=== PATIENT | female | born 1935 | race Caucasian/White ===

== ENCOUNTER 2016-08-01 12:29 | Emergency (ER) | payer MEDICARE, BC ==
[2016-08-01] MEDS ORDERED: KETOROLAC TROMETHAMINE INJ/PF 30 MG/1 ML SDV IV ONE (15:25)
[2016-08-01] MEDS ORDERED: DEXAMETHASONE SOD PHOS INJ 10 MG/1 ML VIAL IV ONE (15:25)
[2016-08-01] MEDS ORDERED: HYDROCODONE/ACETAMINOPHEN 5-325 MG TABLET PO ONE (15:28)
--- NOTE | 2016-08-01 15:30 | ER Document Report ---
ED General - General Chief Complaint: Shoulder Pain Stated Complaint: RIGHT SHOULDER PAIN Time seen by provider: 15:26 Mode of Arrival: Wheelchair Information source: Patient, Parent Notes: 80-year-old female presents to ED for pain in the right shoulder going down the right hand. Today she started having pain in her cervical spine also. States she had pain in her shoulder a month ago with a Dr. Munoz he gave her some exercises to do but the pain has gotten much worse and is now spread to her neck and going down her arm is throbbing down her right arm. TRAVEL OUTSIDE OF THE [place] IN LAST 30 DAYS: No - HPI Onset: Other - month Onset/Duration: Gradual, Persistent, Worse Quality of pain: Sharp, Stabbing, Throbbing Severity: Severe Pain Level: 5 Associated symptoms: Other - Pain and neck right shoulder going down to her hand Exacerbated by: Movement Relieved by: Denies - Lifting Similar symptoms previously: Yes Recently seen / treated by doctor: Yes - Related Data Allergies/Adverse Reactions: No Known Allergies Allergy (Verified 05/10/14 13:21) Past Medical History - General Information source: Patient Last Menstrual Period: hyst - Social History Smoking Status: Never Smoker Cigarette use (# per day): No Chew tobacco use (# tins/day): No Frequency of alcohol use: None Drug Abuse: None Lives with: Family Family History: Reviewed & Not Pertinent Patient has suicidal ideation: No Patient has homicidal ideation: No - Past Medical History Cardiac Medical History: Reports: Hx Hypertension Pulmonary Medical History: Reports: Hx Asthma Denies: Hx Tuberculosis EENT Medical History: Reports: None Neurological Medical History: Reports: None Endocrine Medical History: Reports: Hx Diabetes Mellitus Type 2 Renal/ Medical History: Reports: None Malignancy Medical History: Reports: Hx Skin Cancer GI Medical History: Reports: None Musculoskeltal Medical History: Reports Hx Arthritis, Reports Hx Musculoskeletal Deformity, Reports Hx Musculoskeletal Trauma Skin Medical History: Reports None Psychiatric Medical History: Reports: None Traumatic Medical History: Reports: None Past Surgical History: Reports: Hx Cholecystectomy, Hx Hysterectomy - Immunizations Hx Diphtheria, Pertussis, Tetanus Vaccination: Yes Hx Pneumococcal Vaccination: 03/03/12 Review of Systems - Review of Systems Constitutional: No symptoms reported EENT: No symptoms reported Cardiovascular: No symptoms reported Respiratory: No symptoms reported Gastrointestinal: No symptoms reported Genitourinary: No symptoms reported Female Genitourinary: No symptoms reported Musculoskeletal: Joint pain - Right shoulder pain, Muscle pain, Neck pain, Other - Pain radiates down her right arm Skin: No symptoms reported Hematologic/Lymphatic: No symptoms reported Neurological/Psychological: No symptoms reported Physical Exam - Vital signs Vitals: Temp Pulse Resp BP Pulse Ox 97.6 F 99 20 213/91 H 100 08/01/16 12:41 08/01/16 12:41 08/01/16 12:41 08/01/16 12:41 08/01/16 12:41 Interpretation: Normal - General General appearance: Appears well, Alert - HEENT Head: Normocephalic, Atraumatic Eyes: Normal Pupils: PERRL - Respiratory Respiratory status: No respiratory distress Chest status: Nontender Breath sounds: Normal Chest palpation: Normal - Cardiovascular Rhythm: Regular Heart sounds: Normal auscultation Murmur: No - Abdominal Inspection: Normal Distension: No distension Bowel sounds: Normal Tenderness: Nontender Organomegaly: No organomegaly - Back Back: Normal, Nontender - Extremities General upper extremity: Normal inspection, Normal color, Normal ROM, Normal temperature General lower extremity: Normal inspection, Nontender, Normal color, Normal ROM , Normal temperature, Normal weight bearing. No: Myranda's sign Shoulder: Tender. No: Abrasion, Deformity, Dislocation, Ecchymosis, Instability , Laceration, Limited ROM - She has full range of motion but it is with pain - Neurological Neuro grossly intact: Yes Cognition: Normal Orientation: AAOx4 Marquita Coma Scale Eye Opening: Spontaneous Rarden Coma Scale Verbal: Oriented Rarden Coma Scale Motor: Obeys Commands Marquita Coma Scale Total: 15 Speech: Normal Motor strength normal: LUE, RUE, LLE, RLE Sensory: Normal - Psychological Associated symptoms: Normal affect, Normal mood - Skin Skin Temperature: Warm Skin Moisture: Dry Skin Color: Normal Course - Re-evaluation Re-evalutation: 08/01/16 21:[address] CT were discussed with patient and written reports given to patient patient was treated with IV Toradol and Decadron and discharged home to follow- up with her primary doctor - Vital Signs Vital signs: Temp Pulse Resp BP Pulse Ox 97.6 F 71 20 205/85 H 95 08/01/16 12:41 08/01/16 16:49 08/01/16 16:49 08/01/16 16:49 08/01/16 16:49 - Diagnostic Test Radiology reviewed: Image reviewed, Reports reviewed Discharge - Discharge Clinical Impression: Neck pain Right shoulder pain Qualifiers: Chronicity: unspecified Qualified Code(s): M25.511 - Pain in right shoulder Condition: Stable Disposition: HOME, SELF-CARE Additional Instructions: Arthritis Your symptoms are due to arthritis. Arthritis is an inflammation of the joints. There are many types -- osteoarthritis (due to "wear and tear"), auto- immmune arthritis (such as rheumatoid, lupus, Des's, and others), and crystal -induced arthritis (such as gout and pseudogout). The physician's examination, combined with laboratory tests, will determine the cause of your arthritis. All types of arthritis are treated with antiinflammatory medications. Other medication may be required for special types of arthritis, or if your problem does not respond to the antiinflammatory medicine. Local warmth may be helpful. Move the involved joints through the full range of motion daily. Mild exercise is usually still possible for most persons with arthritis (ask your physician). Swimming provides good exercise without damaging the joints. Contact the physician if you are worsening in any way. You was seen for neck and shoulder pain today. Your x-ray shows some chronic changes but no acute changes to the neck and shoulder. There is evidence of arthritis in both areas. Please follow-up with your primary doctor. You will given a shot of Toradol and Decadron both of which are anti-inflammatories. STEROID MEDICATION: You have been given an injection of medicine of the cortisone/steroid class. This medication is used to control inflammation or allergy. It is often continued as a pill for a short period of time, until the acute process subsides. There are usually no side effects from short-term use of cortisone-like medications. Some persons feel an increased sense of well-being and are not sleepy at bedtime. Long-term use of cortisone medications is best avoided, unless required for a severe condition. If your condition does not remit, or relapses after the course of corticosteroid medication, you should consult your physician. Toradol Injection You have been given an injection of ketorolac tromethamine (Toradol). This is an excellent, safe drug for pain control. It also has potent antiinflammatory action. You should have significant pain relief within about one hour. Toradol is not addicting and is non-sedating. It does not interfere with driving or work. Call or return if you develop itching, hives, shortness of breath, or rash. FOLLOW-UP CARE: If you have been referred to a physician for follow-up care, call the physician s office for an appointment as you were instructed or within the next two days. If you experience worsening or a significant change in your symptoms, notify the physician immediately or return to the Emergency Department at any time for re-evaluation. Forms: Elevated Blood Pressure Referrals: ELISABETH CALVILLO MD [Primary Care Provider] - Follow up as needed
[2016-08-01 16:51] VITALS: BP 205/85
== END 2016-08-01 16:49 | disposition home or self-care (01) ==
LOC: ER 12:29
DX: M54.2 Cervicalgia (principal); M25.511 Pain in right shoulder
CPT/HCPCS: 99284; 96374; 96375; 73030; 72125; J1885; J1100; A9270

== ENCOUNTER 2016-08-11 10:55 | Inpatient (IN) | payer MEDICARE, BC ==
[2016-08-11] MEDS ORDERED: HEPARIN SODIUM,PORCINE/D5W 250 ML IV PRN (13:12)
[2016-08-11] MEDS ORDERED: HEPARIN SOD (PORCINE) 1,000 UNIT/ML 10 ML VIAL IV ONE (14:45)
[2016-08-11 15:12] LABS: ABSOLUTE BASOPHILS # (AUTO) 0.1 10^3/uL (0.0-0.2); ABSOLUTE EOSINOPHILS # (AUTO) 0.3 10^3/uL (0.0-0.6); ABSOLUTE LYMPHOCYTES (AUTO) 2.9 10^3/uL (0.5-4.7); ABSOLUTE MONOCYTES (AUTO) 1.7 10^3/uL (0.1-1.4); BASOPHILS % (AUTO) 0.5 % (0-2); EOSINOPHILS % (AUTO) 2.1 % (0-6); HEMATOCRIT 42.7 % (36.0-47.0); HEMOGLOBIN 14.1 g/dL (12.0-15.5); HGB HCT DIFFERENCE -0.4; MEAN CORPUSCULAR HEMOGLOBIN 26.8 pg (27.0-33.4); MEAN CORPUSCULAR VOLUME 81 fl (80-97); RED BLOOD COUNT 5.26 10^6/uL (3.72-5.28); SEGMENTED NEUTROPHILS % (AUTO) 64.4 % (42-78); WHITE BLOOD COUNT 13.9 10^3/uL (4.0-10.5)
[2016-08-11 15:28] LABS: PARTIAL THROMBOPLASTIN TIME 23.8 SEC (23.5-35.8); PROTHROMBIN TIME 12.4 SEC (11.4-15.4)
[2016-08-11] MEDS ORDERED: HEPARIN SOD (PORCINE) 1,000 UNIT/ML 10 ML VIAL IV PRN (15:39)
[2016-08-11] MEDS: HEPARIN SODIUM,PORCINE/D5W 25,000 UNIT/250 ML RTUINJ IV PRN (16:23)
--- NOTE | 2016-08-11 17:14 | PDOC H&P ---
History of Present Illness Admission Date/PCP: 08/11/16 13:04 ELISABETH CALVILLO, Patient complains of: Left calf pain and swelling History of Present Illness: STEF COOK is a 80 year old female Past Medical History Cardiac Medical History: Reports: Hypertension Pulmonary Medical History: Reports: Asthma Denies: Tuberculosis Endocrine Medical History: Reports: Diabetes Mellitus Type 2 Malignancy Medical History: Reports: Skin Cancer Musculoskeltal Medical History: Reports: Arthritis Past Surgical History Past Surgical History: Reports: Cholecystectomy, Hysterectomy Denies: Pacemaker Social History Information Source: Patient Smoking Status: Never Smoker Frequency of Alcohol Use: Social Hx Recreational Drug Use: No Hx Prescription Drug Abuse: No Family History Family History: Reviewed & Not Pertinent Parental Family History Reviewed: Yes Children Family History Reviewed: Yes Sibling(s) Family History Reviewed.: Yes Medication/Allergy Home Medications: Albuterol Sulfate [Ventolin 0.083% Neb 2.5 Mg/3 Ml Vial.Neb] 2.5 mg IH Q6 Amlodipine Besylate [Norvasc 10 mg Tablet] 10 mg PO DAILY 03/01/12 Carvedilol Phosphate [Coreg Cr] 20 mg PO DAILY 03/01/12 Losartan/Hydrochlorothiazide [Hyzaar 100-25 Tablet] 1 each PO DAILY 03/01/12 Simvastatin [Zocor 80 mg Tablet] 80 mg PO QHS 03/01/12 Omeprazole [Prilosec 20 mg Capsule] 20 mg PO DAILY 03/03/12 Ondansetron HCl [Zofran 4 mg Tablet] 4 tab PO Q6H PRN 03/03/12 Oxycodone HCl/Acetaminophen [Percocet 5-325 mg Tablet] 1 - 2 tab PO ASDIR PRN # 20 tablet 05/10/14 Allergies/Adverse Reactions: No Known Allergies Allergy (Verified 05/10/14 13:21) Review of Systems All systems: as per PMH Physical Exam Vital Signs: Temp Pulse Resp BP Pulse Ox 98.2 F 88 18 168/61 H 96 08/11/16 13:48 08/11/16 13:48 08/11/16 13:48 08/11/16 13:48 08/11/16 13:48 Intake & Output 08/10/16 08/11/16 08/12/16 06:59 06:59 06:59 Weight 109.996 kg General appearance: PRESENT: mild distress Head exam: PRESENT: atraumatic Eye exam: PRESENT: conjunctiva pink Neck exam: ABSENT: carotid bruit, JVD Respiratory exam: PRESENT: clear to auscultation dev Cardiovascular exam: PRESENT: RRR, +S1, +S2 Pulses: PRESENT: normal carotid pulses Vascular exam: PRESENT: normal capillary refill GI/Abdominal exam: PRESENT: normal bowel sounds, soft Extremities exam: PRESENT: full ROM, calf tenderness Musculoskeletal exam: PRESENT: ambulatory Neurological exam: PRESENT: alert, awake, oriented to time Results Laboratory Results: 08/11/16 14:48 08/11/16 14:48 WBC 13.9 H RBC 5.26 Hgb 14.1 Hct 42.7 MCV 81 MCH 26.8 L MCHC 33.0 RDW 15.0 H Plt Count 192 Seg Neutrophils % 64.4 Lymphocytes % 21.0 Monocytes % 12.0 Eosinophils % 2.1 Basophils % 0.5 Absolute Neutrophils 9.0 H Absolute Lymphocytes 2.9 Absolute Monocytes 1.7 H Absolute Eosinophils 0.3 Absolute Basophils 0.1 Impressions: Venous Doppler Study 08/11/16 00:00 IMPRESSION: ACUTE CLOT IN THE LEFT POSTERIOR TIBIAL VEINS, AND PERONEAL VEINS. NO PROPAGATION INTO THE LEFT POPLITEAL VEIN NO LEFT THIGH DEEP VENOUS CLOT OR CLOT IN THE SAPHENOUS SYSTEM Assessment & Plan - Diagnosis (1) DVT (deep venous thrombosis) Qualifiers: DVT location: lower extremity Affected thrombotic vein of extremity: popliteal Laterality: left Chronicity: acute Qualified Code(s): I82.432 - Acute embolism and thrombosis of left popliteal vein Is this a current diagnosis for this admission?: YesPlan: Start heparin and Coumadin. Obtain appropriate labs (2) Hypertension Is this a current diagnosis for this admission?: YesPlan: Continue current blood pressure medications (3) Hyperlipidemia Is this a current diagnosis for this admission?: YesPlan: Continue current home medication (5) Diabetes mellitus type II, non insulin dependent Is this a current diagnosis for this admission?: YesPlan: Continue diabetic medications. If blood sugars are elevated we'll start the insulin protocol - Inpatient Certification Based on my medical assessment, after consideration of the patient's comorbidities, presenting symptoms, or acuity I expect that the services needed warrant INPATIENT care.: Yes I certify that my determination is in accordance with my understanding of Medicare's requirements for reasonable and necessary INPATIENT services [42 CFR 412.3e].: Yes Medical Necessity: Risk of Complication if Not Cared For in Hospital
[2016-08-11 17:49] LABS: PROTHROMBIN TIME 14.6 SEC (11.4-15.4)
[2016-08-11 21:08] LABS: APPEARANCE,URINE CLEAR; BILIRUBIN,URINE NEGATIVE (NEGATIVE); GLUCOSE, URINE NEGATIVE (NEGATIVE); KETONES,URINE NEGATIVE (NEGATIVE); LEUKOCYTE ESTERASE,URINE NEGATIVE (NEGATIVE); NITRITE,URINE NEGATIVE (NEGATIVE); PROTEIN,URINE NEGATIVE (NEGATIVE); URINE SPECIFIC GRAVITY 1.008; UROBILINOGEN,URINE NEGATIVE mg/dL (<2.0)
[2016-08-11] MEDS: CARVEDILOL 6.25 MG TABLET PO SCH (21:30)
[2016-08-11] MEDS ORDERED: (PENDING PHARMACY ID) (Simvastatin [Zocor 80 Mg Tablet] 80 MG) PO SCH (22:00)
[2016-08-11] MEDS ORDERED: SIMVASTATIN 40 MG TABLET PO SCH (22:00)
[2016-08-12] MEDS: LANSOPRAZOLE 15 MG TAB.RAP.DR PO SCH (07:07)
[2016-08-12] MEDS: HEPARIN SODIUM,PORCINE/D5W 25,000 UNIT/250 ML RTUINJ IV PRN (07:08)
[2016-08-12 07:45] LABS: ANION GAP 12 (5-19); BLOOD UREA NITROGEN 20 mg/dL (7-20); CALCIUM 9.4 mg/dL (8.4-10.2); CARBON DIOXIDE 27 mmol/L (22-30); CHLORIDE 103 mmol/L (98-107); CREATININE RESULT 0.87 mg/dL (0.52-1.25); GLUCOSE 138 mg/dL (75-110); POTASSIUM 4.3 mmol/L (3.6-5.0); SODIUM 141.8 mmol/L (137-145)
[2016-08-12 08:54] LABS: APPEARANCE,URINE CLEAR; BILIRUBIN,URINE NEGATIVE (NEGATIVE); GLUCOSE, URINE NEGATIVE (NEGATIVE); KETONES,URINE NEGATIVE (NEGATIVE); LEUKOCYTE ESTERASE,URINE TRACE (NEGATIVE); NITRITE,URINE NEGATIVE (NEGATIVE); PROTEIN,URINE NEGATIVE (NEGATIVE); URINE SPECIFIC GRAVITY 1.011; UROBILINOGEN,URINE NEGATIVE mg/dL (<2.0)
[2016-08-12] MEDS ORDERED: ACETAMINOPHEN 325 MG TABLET PO PRN ×2 (09:01→09:37)
[2016-08-12] MEDS ORDERED: DEXTROSE 50%-WATER 25 GM/50 ML DISP.SYRIN IV PRN ×2 (09:02)
[2016-08-12] MEDS ORDERED: GLUCAGON,HUMAN RECOMB 1 MG INJ IM PRN (09:02)
[2016-08-12] MEDS ORDERED: DEXTROSE 40% GEL 15 GM TUBE PO PRN ×2 (09:02)
--- NOTE | 2016-08-12 09:57 | PDOC PROGRESS REPORT ---
Subjective Progress Note for:: 08/12/16 Subjective:: The patient states to feel better. She is still having pain in her left calf. She denies any shortness of breath. She has tolerated the heparin infusion well. She is still having trouble with pain in her right side of the neck with cervical radiculopathy and medial nerve neuropathy Physical Exam Vital Signs: Temp Pulse Resp BP Pulse Ox 98.2 F 79 18 141/53 H 99 08/12/16 08:15 08/12/16 08:15 08/12/16 08:15 08/12/16 08:15 08/12/16 08:15 Intake & Output 08/11/16 08/12/16 08/13/16 06:59 06:59 06:59 Intake Total 1100 Output Total 800 Balance 300 Weight 113 kg General appearance: PRESENT: no acute distress Head exam: PRESENT: atraumatic Eye exam: PRESENT: conjunctiva pink Neck exam: PRESENT: tenderness. ABSENT: carotid bruit, JVD Respiratory exam: PRESENT: clear to auscultation dev Cardiovascular exam: PRESENT: RRR, +S1, +S2 Pulses: PRESENT: normal carotid pulses GI/Abdominal exam: PRESENT: normal bowel sounds, soft Extremities exam: PRESENT: full ROM, calf tenderness Musculoskeletal exam: PRESENT: ambulatory Neurological exam: PRESENT: alert, awake, oriented to time, CN II-XII grossly intact Results Laboratory Results: 08/11/16 14:48 08/12/16 06:13 08/11/16 08/11/16 08/12/16 14:48 20:20 06:13 WBC 13.9 H RBC 5.26 Hgb 14.1 Hct 42.7 MCV 81 MCH 26.8 L MCHC 33.0 RDW 15.0 H Plt Count 192 Seg Neutrophils % 64.4 Lymphocytes % 21.0 Monocytes % 12.0 Eosinophils % 2.1 Basophils % 0.5 Absolute Neutrophils 9.0 H Absolute Lymphocytes 2.9 Absolute Monocytes 1.7 H Absolute Eosinophils 0.3 Absolute Basophils 0.1 Sodium 141.8 Potassium 4.3 Chloride 103 Carbon Dioxide 27 Anion Gap 12 BUN 20 Creatinine 0.87 Est GFR ( Amer) > 60 Est GFR (Non-Af Amer) > 60 Glucose 138 H Calcium 9.4 Urine Color STRAW Urine Appearance CLEAR Urine pH 7.0 Ur Specific [place] 1.008 Urine Protein NEGATIVE Urine Glucose (UA) NEGATIVE Urine Ketones NEGATIVE Urine Blood NEGATIVE Urine Nitrite NEGATIVE Ur Leukocyte Esterase NEGATIVE Urine WBC (Auto) 1 Urine RBC (Auto) 0 Stool Occult Blood 08/12/16 08/12/16 08:20 08:20 WBC RBC Hgb Hct MCV MCH MCHC RDW Plt Count Seg Neutrophils % Lymphocytes % Monocytes % Eosinophils % Basophils % Absolute Neutrophils Absolute Lymphocytes Absolute Monocytes Absolute Eosinophils Absolute Basophils Sodium Potassium Chloride Carbon Dioxide Anion Gap BUN Creatinine Est GFR ( Amer) Est GFR (Non-Af Amer) Glucose Calcium Urine Color YELLOW Urine Appearance CLEAR Urine pH 6.0 Ur Specific [place] 1.011 Urine Protein NEGATIVE Urine Glucose (UA) NEGATIVE Urine Ketones NEGATIVE Urine Blood NEGATIVE Urine Nitrite NEGATIVE Ur Leukocyte Esterase TRACE H Urine WBC (Auto) 2 Urine RBC (Auto) 0 Stool Occult Blood NEGATIVE Impressions: Venous Doppler Study 08/11/16 00:00 IMPRESSION: ACUTE CLOT IN THE LEFT POSTERIOR TIBIAL VEINS, AND PERONEAL VEINS. NO PROPAGATION INTO THE LEFT POPLITEAL VEIN NO LEFT THIGH DEEP VENOUS CLOT OR CLOT IN THE SAPHENOUS SYSTEM Assessment & Plan - Diagnosis (1) DVT (deep venous thrombosis) Qualifiers: DVT location: lower extremity Affected thrombotic vein of extremity: popliteal Laterality: left Chronicity: acute Qualified Code(s): I82.432 - Acute embolism and thrombosis of left popliteal vein Is this a current diagnosis for this admission?: YesPlan: Continue heparin. We started the Coumadin. Will need 3 days of an overlap (2) Hypertension Qualifiers: Hypertension type: essential hypertension Qualified Code(s): I10 - Essential (primary) hypertension Is this a current diagnosis for this admission?: YesPlan: Controlled with medications will continue present treatment (3) Hyperlipidemia Is this a current diagnosis for this admission?: Yes (4) Hyperlipidemia associated with type 2 diabetes mellitus Is this a current diagnosis for this admission?: YesPlan: We'll adjust the medications (5) Diabetes mellitus type II, non insulin dependent Is this a current diagnosis for this admission?: YesPlan: We will continue current medications. We'll place patient on an Accu-Cheks before meals and at bedtime and start the insulin sliding scale protocol because of adjustment in medications and starting on prednisone (6) Cervical radiculopathy Is this a current diagnosis for this admission?: YesPlan: We'll start low dose steroids and gabapentin
[2016-08-12] MEDS ORDERED: (PENDING PHARMACY ID) (Metformin Hcl [Metformin Hcl Er] 1,000 MG) PO SCH (10:00)
[2016-08-12] MEDS ORDERED: LOSARTAN POTASSIUM 50 MG TABLET PO SCH (10:00)
[2016-08-12] MEDS ORDERED: B6 PO SCH (10:00)
[2016-08-12] MEDS ORDERED: (PENDING PHARMACY ID) (Omeprazole [Prilosec 20 Mg Capsule] 20 MG) PO SCH (10:00)
[2016-08-12] MEDS ORDERED: PREDNISONE 10 MG TABLET PO SCH (10:00)
[2016-08-12] MEDS ORDERED: (PENDING PHARMACY ID) (Losartan/Hydrochlorothiazide [Hyzaar 100-25 Tablet] 1 EACH) PO SCH (10:00)
[2016-08-12] MEDS ORDERED: CARVEDILOL PHOSPHATE 20 MG PO SCH (10:00)
[2016-08-12] MEDS ORDERED: B2 PO SCH (10:00)
[2016-08-12] MEDS ORDERED: FOLIC ACID PO SCH (10:00)
[2016-08-12] MEDS ORDERED: (PENDING PHARMACY ID) (Losartan Potassium [Losartan Potassium] 100 MG) PO SCH (10:00)
[2016-08-12] MEDS ORDERED: B12 PO SCH (10:00)
[2016-08-12] MEDS ORDERED: VIT D3 PO SCH (10:00)
[2016-08-12] MEDS: PREDNISONE 20 MG TABLET PO SCH ×2 (10:29→17:33)
[2016-08-12] MEDS: GLIMEPIRIDE 4 MG TABLET PO SCH (10:30)
[2016-08-12] MEDS: AMLODIPINE BESYLATE 10 MG TABLET PO SCH (10:30)
[2016-08-12] MEDS: LOSARTAN POTASSIUM 50 MG TABLET PO SCH (10:31)
[2016-08-12] MEDS: HYDROCHLOROTHIAZIDE 25 MG TABLET PO SCH (10:31)
[2016-08-12] MEDS: CARVEDILOL 6.25 MG TABLET PO SCH ×2 (10:31→21:39)
[2016-08-12] MEDS: GABAPENTIN 100 MG CAPSULE PO SCH ×2 (13:50→21:37)
--- NOTE | 2016-08-12 14:52 | EKG REPORT ---
SEVERITY:- BORDERLINE ECG - SINUS RHYTHM PROBABLE LEFT ATRIAL ABNORMALITY BORDERLINE T ABNORMALITIES, ANT-LAT LEADS : Confirmed by: Marian West 12-Aug-2016 14:52:05
[2016-08-12] MEDS: INSULIN LISPRO 100 UNIT/ML 3 ML VIAL SUBCUT PRN ×2 (17:31→21:39)
[2016-08-12] MEDS: METFORMIN HCL 500 MG TABLET PO SCH (17:33)
[2016-08-12] MEDS: ATORVASTATIN CALCIUM 40 MG TABLET PO SCH (21:37)
[2016-08-13 04:39] LABS: PROTHROMBIN TIME 14.1 SEC (11.4-15.4)
[2016-08-13] MEDS: GABAPENTIN 100 MG CAPSULE PO SCH ×3 (05:47→21:39)
[2016-08-13] MEDS: LANSOPRAZOLE 15 MG TAB.RAP.DR PO SCH (05:48)
[2016-08-13] MEDS: HEPARIN SODIUM,PORCINE/D5W 25,000 UNIT/250 ML RTUINJ IV PRN (05:48)
[2016-08-13] MEDS: METFORMIN HCL 500 MG TABLET PO SCH ×2 (08:05→17:37)
[2016-08-13] MEDS: INSULIN LISPRO 100 UNIT/ML 3 ML VIAL SUBCUT PRN ×2 (08:05→21:39)
[2016-08-13] MEDS: LOSARTAN POTASSIUM 50 MG TABLET PO SCH (09:26)
[2016-08-13] MEDS: HYDROCHLOROTHIAZIDE 25 MG TABLET PO SCH (09:26)
[2016-08-13] MEDS: CARVEDILOL 6.25 MG TABLET PO SCH ×2 (09:26→21:39)
[2016-08-13] MEDS: GLIMEPIRIDE 4 MG TABLET PO SCH (09:27)
[2016-08-13] MEDS: PREDNISONE 20 MG TABLET PO SCH ×2 (09:27→17:37)
[2016-08-13] MEDS: AMLODIPINE BESYLATE 10 MG TABLET PO SCH (09:27)
[2016-08-13 10:46] LABS: HEMATOCRIT 41.5 % (36.0-47.0); HEMOGLOBIN 13.2 g/dL (12.0-15.5); HGB HCT DIFFERENCE -1.9; MEAN CORPUSCULAR HEMOGLOBIN 26.4 pg (27.0-33.4); MEAN CORPUSCULAR HGB CONC 31.7 g/dL (32.0-36.0); MEAN CORPUSCULAR VOLUME 83 fl (80-97); RED BLOOD COUNT 4.98 10^6/uL (3.72-5.28); RED CELL DISTRIBUTION WIDTH 14.9 % (11.5-14.0); WHITE BLOOD COUNT 23.4 10^3/uL (4.0-10.5)
[2016-08-13 10:58] LABS: PROTHROMBIN TIME 13.5 SEC (11.4-15.4)
--- NOTE | 2016-08-13 12:54 | PDOC PROGRESS REPORT ---
Subjective Progress Note for:: 08/13/16 Subjective:: Patient presented with left lower extremity pain and swelling and erythema was found to have DVT. She was admitted by her primary care physician and started on heparin drip as bridge to Coumadin. Coumadin is not yet begun. Patient states she's has resolution of the erythema still some swelling that her pain is well-controlled this morning. Risk factors for DVT include a three-week hiatus from work due to a pinched nerve in her neck leaving her essentially bedbound. 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 Physical Exam Vital Signs: Temp Pulse Resp BP Pulse Ox 97.4 F 78 17 116/61 95 08/13/16 07:53 08/13/16 07:53 08/13/16 07:53 08/13/16 07:53 08/13/16 07:53 Intake & Output 08/12/16 08/13/16 08/14/16 06:59 06:59 06:59 Intake Total 1100 1960 Output Total 800 1500 Balance 300 460 Weight 113 kg 113 kg General appearance: PRESENT: no acute distress, well-developed, well-nourished Head exam: PRESENT: atraumatic, normocephalic Eye exam: PRESENT: conjunctiva pink, EOMI, PERRLA. ABSENT: scleral icterus Mouth exam: PRESENT: moist, tongue midline Neck exam: ABSENT: JVD, lymphadenopathy, thyromegaly Respiratory exam: PRESENT: clear to auscultation dev. ABSENT: rales, rhonchi, wheezes Cardiovascular exam: PRESENT: RRR. ABSENT: diastolic murmur, rubs, systolic murmur Pulses: PRESENT: normal dorsalis pedis pul Vascular exam: PRESENT: normal capillary refill GI/Abdominal exam: PRESENT: normal bowel sounds, soft. ABSENT: distended, guarding, mass, organolmegaly, rebound, tenderness Rectal exam: PRESENT: deferred Extremities exam: PRESENT: calf tenderness - Left, full ROM, pedal edema - Nonpitting on the left. ABSENT: clubbing Neurological exam: PRESENT: alert, awake, oriented to person, oriented to place , oriented to time, oriented to situation Psychiatric exam: PRESENT: appropriate affect, normal mood Skin exam: PRESENT: dry, intact, warm - No erythema. ABSENT: cyanosis, erythema , rash Results Laboratory Results: 08/13/16 10:35 08/12/16 06:13 08/13/16 10:35 WBC 23.4 H RBC 4.98 Hgb 13.2 Hct 41.5 MCV 83 MCH 26.4 L MCHC 31.7 L RDW 14.9 H Plt Count 227 Impressions: Venous Doppler Study 08/11/16 00:00 IMPRESSION: ACUTE CLOT IN THE LEFT POSTERIOR TIBIAL VEINS, AND PERONEAL VEINS. NO PROPAGATION INTO THE LEFT POPLITEAL VEIN NO LEFT THIGH DEEP VENOUS CLOT OR CLOT IN THE SAPHENOUS SYSTEM Status: Image reviewed by me Assessment & Plan - Diagnosis (1) DVT (deep venous thrombosis) Qualifiers: DVT location: lower extremity Affected thrombotic vein of extremity: popliteal Laterality: left Chronicity: acute Qualified Code(s): I82.432 - Acute embolism and thrombosis of left popliteal vein Is this a current diagnosis for this admission?: YesPlan: Continue heparin drip. Start Coumadin per protocol. - Time Time Spent with patient: 25-34 minutes
[2016-08-13 15:37] LABS: PROTEIN S FREE 79 % (57-157); PROTEIN S TOTAL 130 % (60-150)
[2016-08-13] MEDS: WARFARIN SODIUM 7.5 MG TABLET PO SCH (21:39)
[2016-08-13] MEDS: ATORVASTATIN CALCIUM 40 MG TABLET PO SCH (21:39)
[2016-08-14 04:57] LABS: PROTHROMBIN TIME 14.3 SEC (11.4-15.4)
[2016-08-14 05:00] LABS: PARTIAL THROMBOPLASTIN TIME 114.1 SEC (23.5-35.8)
[2016-08-14] MEDS: HEPARIN SODIUM,PORCINE/D5W 25,000 UNIT/250 ML RTUINJ IV PRN (06:18)
[2016-08-14] MEDS: LANSOPRAZOLE 15 MG TAB.RAP.DR PO SCH (06:18)
[2016-08-14] MEDS: GABAPENTIN 100 MG CAPSULE PO SCH ×3 (06:18→21:56)
[2016-08-14 06:50] LABS: PROTEIN S FUNCTIONAL 84 % (63-140)
[2016-08-14] MEDS: INSULIN LISPRO 100 UNIT/ML 3 ML VIAL SUBCUT PRN ×2 (08:05→21:57)
[2016-08-14] MEDS: METFORMIN HCL 500 MG TABLET PO SCH ×2 (08:05→17:26)
[2016-08-14] MEDS: LOSARTAN POTASSIUM 50 MG TABLET PO SCH (10:29)
[2016-08-14] MEDS: AMLODIPINE BESYLATE 10 MG TABLET PO SCH (10:30)
[2016-08-14] MEDS: PREDNISONE 20 MG TABLET PO SCH ×2 (10:30→17:26)
[2016-08-14] MEDS: GLIMEPIRIDE 4 MG TABLET PO SCH (10:30)
[2016-08-14] MEDS: CARVEDILOL 6.25 MG TABLET PO SCH ×2 (10:30→21:57)
[2016-08-14] MEDS: HYDROCHLOROTHIAZIDE 25 MG TABLET PO SCH (10:30)
--- NOTE | 2016-08-14 11:55 | PDOC PROGRESS REPORT ---
Subjective Progress Note for:: 08/14/16 Subjective:: Patient presented with left lower extremity pain and swelling and erythema was found to have DVT. She was admitted by her primary care physician and started on heparin drip as bridge to Coumadin. Coumadin is not yet begun. Patient states she's has resolution of the erythema still some swelling that her pain is well-controlled this morning. Risk factors for DVT include a three-week hiatus from work due to a pinched nerve in her neck leaving her essentially bedbound. 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 Reports an episode of postural dizziness last night upon rising from the bed she felt woozy requiring assistance back to bed by family members. There was no loss of consciousness and no other associated symptoms and she's had no recurrence since. Physical Exam Vital Signs: Temp Pulse Resp BP Pulse Ox 97.7 F 75 20 134/56 H 98 08/14/16 08:00 08/14/16 08:00 08/14/16 08:00 08/14/16 08:00 08/14/16 08:00 Intake & Output 08/13/16 08/14/16 08/15/16 06:59 06:59 06:59 Intake Total 1960 2258 Output Total 1500 1700 Balance 460 558 Weight 113 kg 113 kg General appearance: PRESENT: no acute distress, well-developed, well-nourished Head exam: PRESENT: atraumatic, normocephalic Eye exam: PRESENT: conjunctiva pink, EOMI, PERRLA. ABSENT: scleral icterus Mouth exam: PRESENT: moist, tongue midline Neck exam: PRESENT: full ROM Respiratory exam: PRESENT: clear to auscultation dev. ABSENT: rales, rhonchi, wheezes Cardiovascular exam: PRESENT: RRR. ABSENT: diastolic murmur, rubs, systolic murmur Pulses: PRESENT: normal dorsalis pedis pul Vascular exam: PRESENT: normal capillary refill GI/Abdominal exam: PRESENT: normal bowel sounds, soft. ABSENT: tenderness Rectal exam: PRESENT: deferred Extremities exam: PRESENT: full ROM. ABSENT: calf tenderness - Resolved, no overlying erythema. No palpable cords, clubbing, pedal edema Neurological exam: PRESENT: alert, awake, oriented to person, oriented to place , oriented to time, oriented to situation Psychiatric exam: PRESENT: appropriate affect, normal mood Skin exam: PRESENT: dry, intact, warm. ABSENT: cyanosis, rash Results Laboratory Results: 08/13/16 10:35 08/12/16 06:13 Impressions: Venous Doppler Study 08/11/16 00:00 IMPRESSION: ACUTE CLOT IN THE LEFT POSTERIOR TIBIAL VEINS, AND PERONEAL VEINS. NO PROPAGATION INTO THE LEFT POPLITEAL VEIN NO LEFT THIGH DEEP VENOUS CLOT OR CLOT IN THE SAPHENOUS SYSTEM Assessment & Plan - Diagnosis (1) DVT (deep venous thrombosis) Qualifiers: DVT location: lower extremity Affected thrombotic vein of extremity: popliteal Laterality: left Chronicity: acute Qualified Code(s): I82.432 - Acute embolism and thrombosis of left popliteal vein Is this a current diagnosis for this admission?: YesPlan: Continue heparin drip. Started Coumadin per protocol. Daily INR. Her PCP will return in the morning to resume her care. - Time Time Spent with patient: 25-34 minutes
[2016-08-14 13:50] LABS: ANTITHROMBIN III ACTIVITY 124 % (75-135)
[2016-08-14 21:07] LABS: PROTEIN C ANTIGEN 128 % (60-150)
[2016-08-14] MEDS: ATORVASTATIN CALCIUM 40 MG TABLET PO SCH (21:56)
[2016-08-14] MEDS: WARFARIN SODIUM 7.5 MG TABLET PO SCH (21:58)
[2016-08-15 02:43] LABS: HEMATOCRIT 38.7 % (36.0-47.0); HEMOGLOBIN 12.6 g/dL (12.0-15.5); HGB HCT DIFFERENCE -0.9; MEAN CORPUSCULAR HEMOGLOBIN 26.9 pg (27.0-33.4); MEAN CORPUSCULAR HGB CONC 32.5 g/dL (32.0-36.0); MEAN CORPUSCULAR VOLUME 83 fl (80-97); RED BLOOD COUNT 4.67 10^6/uL (3.72-5.28); RED CELL DISTRIBUTION WIDTH 15.4 % (11.5-14.0); WHITE BLOOD COUNT 17.5 10^3/uL (4.0-10.5)
[2016-08-15 02:49] LABS: PROTHROMBIN TIME 14.9 SEC (11.4-15.4)
[2016-08-15] MEDS: LANSOPRAZOLE 15 MG TAB.RAP.DR PO SCH (06:28)
[2016-08-15] MEDS: GABAPENTIN 100 MG CAPSULE PO SCH ×3 (06:28→22:29)
[2016-08-15 07:32] LABS: PROTEIN C ACTIVITY 159 % (73-180)
--- NOTE | 2016-08-15 09:03 | PDOC PROGRESS REPORT ---
Subjective Progress Note for:: 08/15/16 Subjective:: The patient states to feel much better. She does not have any pain in her left calf. She has not been out of bed. Her neck is feeling much better. Physical Exam Vital Signs: Temp Pulse Resp BP Pulse Ox 97.4 F 75 18 145/61 H 97 08/15/16 07:58 08/15/16 07:58 08/15/16 07:58 08/15/16 07:58 08/15/16 07:58 Intake & Output 08/14/16 08/15/16 08/16/16 06:59 06:59 06:59 Intake Total 2258 1062 Output Total 1700 2100 Balance 558 -1038 Weight 113 kg General appearance: PRESENT: no acute distress Head exam: PRESENT: atraumatic Eye exam: PRESENT: conjunctiva pink Neck exam: ABSENT: carotid bruit Respiratory exam: PRESENT: clear to auscultation dev Cardiovascular exam: PRESENT: RRR, +S1, +S2 Pulses: PRESENT: +1 pedal pulses bilateral Vascular exam: PRESENT: normal capillary refill GI/Abdominal exam: PRESENT: normal bowel sounds, soft Extremities exam: PRESENT: full ROM Musculoskeletal exam: PRESENT: ambulatory Neurological exam: PRESENT: alert, altered, oriented to time Results Laboratory Results: 08/15/16 02:27 08/12/16 06:13 08/15/16 02:27 WBC 17.5 H RBC 4.67 Hgb 12.6 Hct 38.7 MCV 83 MCH 26.9 L MCHC 32.5 RDW 15.4 H Plt Count 238 Impressions: Venous Doppler Study 08/11/16 00:00 IMPRESSION: ACUTE CLOT IN THE LEFT POSTERIOR TIBIAL VEINS, AND PERONEAL VEINS. NO PROPAGATION INTO THE LEFT POPLITEAL VEIN NO LEFT THIGH DEEP VENOUS CLOT OR CLOT IN THE SAPHENOUS SYSTEM Assessment & Plan - Diagnosis (1) DVT (deep venous thrombosis) Qualifiers: DVT location: lower extremity Affected thrombotic vein of extremity: popliteal Laterality: left Chronicity: acute Qualified Code(s): I82.432 - Acute embolism and thrombosis of left popliteal vein Is this a current diagnosis for this admission?: YesPlan: The patient has been on IV heparin drip for the past 3 days. We'll switch to Lovenox subcutaneous and continue heparin. (2) Hypertension Qualifiers: Hypertension type: essential hypertension Qualified Code(s): I10 - Essential (primary) hypertension Is this a current diagnosis for this admission?: YesPlan: Controlled with medications will continue present treatment (3) Hyperlipidemia Is this a current diagnosis for this admission?: Yes (4) Hyperlipidemia associated with type 2 diabetes mellitus Is this a current diagnosis for this admission?: Yes (5) Diabetes mellitus type II, non insulin dependent Is this a current diagnosis for this admission?: YesPlan: Blood sugars are controlled with sliding scale insulin (6) Cervical radiculopathy Is this a current diagnosis for this admission?: YesPlan: The cervical radiculopathy has improved with prednisone
[2016-08-15] MEDS: METFORMIN HCL 500 MG TABLET PO SCH ×2 (09:34→19:00)
[2016-08-15] MEDS: AMLODIPINE BESYLATE 10 MG TABLET PO SCH (09:34)
[2016-08-15] MEDS: CARVEDILOL 6.25 MG TABLET PO SCH ×2 (09:35→22:29)
[2016-08-15] MEDS: CYANOCOBALAMIN/FA/PYRIDOXINE TABLET PO SCH (09:35)
[2016-08-15] MEDS: HYDROCHLOROTHIAZIDE 25 MG TABLET PO SCH (09:36)
[2016-08-15] MEDS: LOSARTAN POTASSIUM 50 MG TABLET PO SCH (09:36)
[2016-08-15] MEDS: GLIMEPIRIDE 4 MG TABLET PO SCH (09:36)
[2016-08-15] MEDS ORDERED: ENOXAPARIN SODIUM INJ 120 MG/0.8 ML DISP.SYRIN SUBCUT ONE (12:00)
[2016-08-15] MEDS ORDERED: PREDNISONE 20 MG TABLET PO ONE (12:00)
[2016-08-15] MEDS: PREDNISONE 20 MG TABLET PO SCH (19:00)
[2016-08-15] MEDS ORDERED: ENOXAPARIN SODIUM INJ 120 MG/0.8 ML DISP.SYRIN SUBCUT SCH (22:00)
[2016-08-15] MEDS: ATORVASTATIN CALCIUM 40 MG TABLET PO SCH (22:29)
[2016-08-15] MEDS: WARFARIN SODIUM 7.5 MG TABLET PO SCH (22:29)
[2016-08-16 05:24] LABS: PROTHROMBIN TIME 20.8 SEC (11.4-15.4)
[2016-08-16 05:28] LABS: ABSOLUTE BASOPHILS # (AUTO) 0.1 10^3/uL (0.0-0.2); ABSOLUTE LYMPHOCYTES (AUTO) 3.2 10^3/uL (0.5-4.7); ABSOLUTE MONOCYTES (AUTO) 1.3 10^3/uL (0.1-1.4); ABSOLUTE NEUT (AUTO) 13.2 10^3/uL (1.7-8.2); BASOPHILS % (AUTO) 0.4 % (0-2); EOSINOPHILS % (AUTO) 0.1 % (0-6); HEMATOCRIT 42.4 % (36.0-47.0); HEMOGLOBIN 13.4 g/dL (12.0-15.5); HGB HCT DIFFERENCE -2.2; MEAN CORPUSCULAR HEMOGLOBIN 26.4 pg (27.0-33.4); MEAN CORPUSCULAR HGB CONC 31.7 g/dL (32.0-36.0); MEAN CORPUSCULAR VOLUME 83 fl (80-97); MONOCYTES % (AUTO) 7.6 % (3-13); RED BLOOD COUNT 5.08 10^6/uL (3.72-5.28); RED CELL DISTRIBUTION WIDTH 15.2 % (11.5-14.0); SEGMENTED NEUTROPHILS % (AUTO) 73.9 % (42-78); WHITE BLOOD COUNT 17.8 10^3/uL (4.0-10.5)
[2016-08-16 05:43] LABS: ALANINE AMINOTRANSFERASE 25 U/L (9-52); ALBUMIN 3.4 g/dL (3.5-5.0); ALKALINE PHOSPHATASE 79 U/L (38-126); ANION GAP 12 (5-19); ASPARTATE AMINO TRANSFERASE 56 U/L (14-36); BILIRUBIN,TOTAL 0.3 mg/dL (0.2-1.3); BLOOD UREA NITROGEN 32 mg/dL (7-20); CALCIUM 9.7 mg/dL (8.4-10.2); CARBON DIOXIDE 27 mmol/L (22-30); CHLORIDE 103 mmol/L (98-107); CREATININE RESULT 0.87 mg/dL (0.52-1.25); GLUCOSE 118 mg/dL (75-110); POTASSIUM 4.6 mmol/L (3.6-5.0); SODIUM 142.2 mmol/L (137-145); TOTAL PROTEIN 7.3 g/dL (6.3-8.2)
[2016-08-16] MEDS: GABAPENTIN 100 MG CAPSULE PO SCH (06:26)
[2016-08-16] MEDS: LANSOPRAZOLE 15 MG TAB.RAP.DR PO SCH (06:26)
[2016-08-16] MEDS: GLIMEPIRIDE 4 MG TABLET PO SCH (09:56)
[2016-08-16] MEDS: METFORMIN HCL 500 MG TABLET PO SCH (09:56)
[2016-08-16] MEDS: AMLODIPINE BESYLATE 10 MG TABLET PO SCH (09:57)
[2016-08-16] MEDS: PREDNISONE 20 MG TABLET PO SCH (09:57)
[2016-08-16] MEDS: HYDROCHLOROTHIAZIDE 25 MG TABLET PO SCH (09:58)
[2016-08-16] MEDS: LOSARTAN POTASSIUM 50 MG TABLET PO SCH (09:58)
[2016-08-16] MEDS: CYANOCOBALAMIN/FA/PYRIDOXINE TABLET PO SCH (09:59)
[2016-08-16 10:08] VITALS: BP 145/52
--- NOTE | 2016-08-16 11:32 | PDOC DISCHARGE SUMMARY ---
General - Admit/Disc Date/PCP Admission Date/Primary Care Provider: 08/11/16 13:04 ELISABETH CALVILLO, Discharge Date: 08/16/16 - Discharge Diagnosis (1) DVT (deep venous thrombosis) Is this a current diagnosis for this admission?: YesSummary: Left lower extremity DVT on Lovenox and Coumadin (2) Hypertension Is this a current diagnosis for this admission?: YesSummary: Well-controlled with medication (3) Hyperlipidemia Is this a current diagnosis for this admission?: YesSummary: Controlled with medication (4) Hyperlipidemia associated with type 2 diabetes mellitus Is this a current diagnosis for this admission?: Yes (5) Diabetes mellitus type II, non insulin dependent Is this a current diagnosis for this admission?: YesSummary: Relatively well controlled with adjustment of medication because of use of prednisone (6) Cervical radiculopathy Is this a current diagnosis for this admission?: YesSummary: Improved with exercises and prednisone - Additional Information Discharge Diet: As Tolerated Discharge Activity: Activity As Tolerated Home Medications: Amlodipine Besylate 10 mg PO DAILY 08/11/16 Atorvastatin Calcium 80 mg PO DAILY 08/11/16 Ca/D3/Mag Ox/Zinc/Telephone Maintainer/Alirio/Bor [Calcium 600-D3 Plus Caplet] 2 tab PO DAILY 08/11 Glimepiride [Amaryl] 2 mg PO DAILY 08/11/16 Losartan Potassium 100 mg PO DAILY 08/11/16 Metformin HCl [Metformin HCl ER] 1,000 mg PO BID 08/11/16 Vit D3/Folic Acid/B2/B6/B12 [Folgard Tablet] 1 tab PO DAILY 08/11/16 Enoxaparin Sodium [Lovenox Inj 120 mg/0.8 ml Disp.syrin] 115 mg SUBCUT Q12 #4 disp.syrin 08/16/16 Prednisone [Deltasone 20 mg Tablet] 10 mg PO BID #20 tablet 08/16/16 Warfarin Sodium [Coumadin 7.5 mg Tablet] 5 mg PO QHS #30 tablet 08/16/16 History of Present Illness History of Present Illness: STEF COOK is a 80 year old female Hospital Course Hospital Course: The patient was admitted directly from the office. She was started on heparin protocol. She did well. After several days of IV heparin the pain in the left lower extremity has resolved. The patient was switched to Lovenox and continued on Coumadin. She was able to ambulate without any significant pain. Head and neck pain has improved with the use of prednisone. Her diabetes needed to be controlled better with some other medications and insulin sliding scale because of use of prednisone Physical Exam Vital Signs: Temp Pulse Resp BP Pulse Ox 97.5 F 62 14 145/52 H 138 H 08/16/16 10:02 08/16/16 10:02 08/16/16 10:02 08/16/16 10:02 08/16/16 10:02 Intake & Output 08/15/16 08/16/16 08/17/16 06:59 06:59 06:59 Intake Total 1062 533 Output Total 2100 2300 Balance -1038 -1767 General appearance: PRESENT: no acute distress Head exam: PRESENT: atraumatic Eye exam: PRESENT: conjunctiva pink Neck exam: PRESENT: full ROM. ABSENT: carotid bruit, JVD Respiratory exam: PRESENT: clear to auscultation dev Cardiovascular exam: PRESENT: RRR, +S1, +S2 Pulses: PRESENT: normal carotid pulses, +1 pedal pulses bilateral Vascular exam: PRESENT: normal capillary refill GI/Abdominal exam: PRESENT: normal bowel sounds, soft Extremities exam: PRESENT: full ROM Musculoskeletal exam: PRESENT: ambulatory Neurological exam: PRESENT: alert, oriented to time Results Laboratory Results: 08/16/16 04:50 08/16/16 04:50 08/16/16 08/16/16 04:50 04:50 WBC 17.8 H RBC 5.08 Hgb 13.4 Hct 42.4 MCV 83 MCH 26.4 L MCHC 31.7 L RDW 15.2 H Plt Count 234 Seg Neutrophils % 73.9 Lymphocytes % 18.0 Monocytes % 7.6 Eosinophils % 0.1 Basophils % 0.4 Absolute Neutrophils 13.2 H Absolute Lymphocytes 3.2 Absolute Monocytes 1.3 Absolute Eosinophils 0.0 Absolute Basophils 0.1 Sodium 142.2 Potassium 4.6 Chloride 103 Carbon Dioxide 27 Anion Gap 12 BUN 32 H Creatinine 0.87 Est GFR ( Amer) > 60 Est GFR (Non-Af Amer) > 60 Glucose 118 H Calcium 9.7 Total Bilirubin 0.3 AST 56 H ALT 25 Alkaline Phosphatase 79 Total Protein 7.3 Albumin 3.4 L Impressions: Venous Doppler Study 08/11/16 00:00 IMPRESSION: ACUTE CLOT IN THE LEFT POSTERIOR TIBIAL VEINS, AND PERONEAL VEINS. NO PROPAGATION INTO THE LEFT POPLITEAL VEIN NO LEFT THIGH DEEP VENOUS CLOT OR CLOT IN THE SAPHENOUS SYSTEM Plan Discharge Plan: We'll discharge home with Lovenox and Coumadin. We'll recheck PT/INR in 48 hours. We'll follow up in the office in one week and when necessary Continue other medications Continue HANNAH mclaughlin
== END 2016-08-16 11:20 | disposition home or self-care (01) | DRG 301 ==
LOC: SP 10:55 → 4W 11:58 → OBSVTOIN 13:04
PROVIDERS: ADMIT Internal Medicine; ATTEND Internal Medicine
DX: I82.432 Acute embolism and thrombosis of left popliteal vein (principal); I10 Essential (primary) hypertension; E78.5 Hyperlipidemia, unspecified; E11.9 Type 2 diabetes mellitus without complications; M19.90 Unspecified osteoarthritis, unspecified site; J45.909 Unspecified asthma, uncomplicated; M54.12 Radiculopathy, cervical region; Z79.899 Other long term (current) drug therapy; Z79.84 Long term (current) use of oral hypoglycemic drugs; Z85.828 Personal history of other malignant neoplasm of skin; Z90.710 Acquired absence of both cervix and uterus; Z90.49 Acquired absence of other specified parts of digestive tract
CPT/HCPCS: 36415; 80048; 80053; 81001; 82272; 82962; 85025; 85027; 85300; 85301; 85302; 85305; 85306; 85597; 85598; 85610; 85613; 85730; 85732; 86146; 86147; 86148; 86849; 93005; 93010; 93971; J1644; J1650; J1815; J3490; J7512

== ENCOUNTER → 2016-08-18 | Outpatient (CLI) | payer MEDICARE, BC ==
[2016-08-18 11:07] LABS: PROTHROMBIN TIME 29.1 SEC (11.4-15.4)
== END ==
LOC: OD 09:35
PROVIDERS: ATTEND Internal Medicine
DX: Z79.01 Long term (current) use of anticoagulants (principal)
CPT/HCPCS: 36415; 85610

== ENCOUNTER → 2016-08-29 | Outpatient (CLI) | payer MEDICARE, BC | LOC: OD 09:41 | PROVIDERS: ATTEND Internal Medicine | DX: Z79.01 Long term (current) use of anticoagulants (principal) | CPT/HCPCS: 36415; 85610 ==

== ENCOUNTER → 2016-09-12 | Outpatient (CLI) | payer MEDICARE, BC ==
[2016-09-12 11:10] LABS: PROTHROMBIN TIME 18.8 SEC (11.4-15.4)
== END ==
LOC: OD 09:39
PROVIDERS: ATTEND Internal Medicine
DX: Z79.01 Long term (current) use of anticoagulants (principal)
CPT/HCPCS: 36415; 85610

== ENCOUNTER → 2016-09-21 | Outpatient (CLI) | payer MEDICARE, BC | LOC: RAD 11:54 | PROVIDERS: ATTEND Internal Medicine | DX: M54.12 Radiculopathy, cervical region (principal); G56.10 Other lesions of median nerve, unspecified upper limb | CPT/HCPCS: 72141 ==

== ENCOUNTER → 2016-12-13 | Outpatient (CLI) | payer MEDICARE, BC ==
--- NOTE | 2016-12-13 12:35 | XCELERA REPORT ---
[address] [address] Lower Extremity Venous Evaluation Name: STEF COOK Age: 81 yrs Gender: Female : 1935 Patient Status: Outpatient Patient Location: Study Date: 12/13/2016 11:40 AM Procedure: Color flow and duplex imaging bilaterally of the veins of the lower extremities as well as the Common Femoral veins. Reason For Study: PAIN Ordering Physician: ELISABETH CALVILLO Performed By: Yasir Nelson Right Sided Venous Evaluation Normal vessel filling wall to wall, compression and augmentation as well as Colour flow down to the infrageniculate veins. Subcutaneous edema noted. Left Sided Venous Evaluation Normal vessel filling wall to wall, compression and augmentation as well as Colour flow down to the infrageniculate veins. Subcutaneous edema noted. Interpretation Summary No duplex evidence of DVT or obstruction in the bilateral lower extremities. Leg edema noted on ultrasound. : ELISABETH CALVILLO [place]
== END ==
LOC: SP 11:20
PROVIDERS: ATTEND Internal Medicine
DX: M79.605 Pain in left leg (principal); M79.604 Pain in right leg; M79.89 Other specified soft tissue disorders
CPT/HCPCS: 93970

== ENCOUNTER → 2016-12-14 | Outpatient (CLI) | payer MEDICARE, BC ==
[2016-12-15 16:03] LABS: ABSOLUTE EOSINOPHILS # (AUTO) 0.2 10^3/uL (0.0-0.6); ABSOLUTE LYMPHOCYTES (AUTO) 2.8 10^3/uL (0.5-4.7); ABSOLUTE MONOCYTES (AUTO) 0.8 10^3/uL (0.1-1.4); ABSOLUTE NEUT (AUTO) 4.1 10^3/uL (1.7-8.2); BASOPHILS % (AUTO) 0.5 % (0-2); HEMATOCRIT 38.9 % (36.0-47.0); HEMOGLOBIN 12.3 g/dL (12.0-15.5); LYMPHOCYTES % (AUTO) 35.6 % (13-45); MEAN CORPUSCULAR HEMOGLOBIN 26.8 pg (27.0-33.4); MEAN CORPUSCULAR HGB CONC 31.6 g/dL (32.0-36.0); MEAN CORPUSCULAR VOLUME 85 fl (80-97); MONOCYTES % (AUTO) 9.7 % (3-13); RED BLOOD COUNT 4.59 10^6/uL (3.72-5.28); RED CELL DISTRIBUTION WIDTH 14.9 % (11.5-14.0); SEGMENTED NEUTROPHILS % (AUTO) 51.2 % (42-78); WHITE BLOOD COUNT 7.9 10^3/uL (4.0-10.5)
[2016-12-15 17:24] LABS: BLOOD UREA NITROGEN 19 mg/dL (7-20); CALCIUM 9.6 mg/dL (8.4-10.2); CREATININE RESULT 1.04 mg/dL (0.52-1.25); GLUCOSE 86 mg/dL (75-110)
[2016-12-15 17:25] LABS: ANION GAP 14 (5-19); CARBON DIOXIDE 30 mmol/L (22-30); CHLORIDE 101 mmol/L (98-107); POTASSIUM 4.5 mmol/L (3.6-5.0); SODIUM 144.8 mmol/L (137-145)
[2016-12-15 17:26] LABS: ALANINE AMINOTRANSFERASE 31 U/L (9-52); ALBUMIN 4.3 g/dL (3.5-5.0); ALKALINE PHOSPHATASE 70 U/L (38-126); ASPARTATE AMINO TRANSFERASE 27 U/L (14-36); BILIRUBIN,DIRECT 0.4 mg/dL (0.0-0.4); BILIRUBIN,TOTAL 0.7 mg/dL (0.2-1.3)
[2016-12-15 17:30] LABS: CHOLESTEROL 174.37 mg/dL (0-200); DIRECT LDL 84 mg/dL (<100); Direct HDL 43 mg/dL (>40); MAGNESIUM 1.1 mg/dL (1.6-2.3); TRIGLYCERIDES 166 mg/dL (<150); VLDL CHOLESTEROL 33.2 mg/dL (10-31)
== END ==
LOC: OD 21:30
PROVIDERS: ATTEND Internal Medicine
DX: E87.70 Fluid overload, unspecified (principal); E11.9 Type 2 diabetes mellitus without complications; I10 Essential (primary) hypertension; R53.82 Chronic fatigue, unspecified; E78.5 Hyperlipidemia, unspecified
CPT/HCPCS: 36415; 80053; 80061; 83036; 83735; 84443; 85025

== ENCOUNTER → 2017-04-17 | Outpatient (CLI) | payer MEDICARE, BC ==
--- NOTE | 2017-04-17 16:17 | XCELERA REPORT ---
[address] [address] Lower Extremity Venous Evaluation Name: STEF COOK Age: 81 yrs Gender: Female : 1935 Patient Status: Outpatient Patient Location: Study Date: 04/17/2017 08:45 AM Procedure: Color flow and duplex imaging of the veins of the left lower extremity as well as the right Common Femoral vein. Reason For Study: H/O DVT Ordering Physician: ELISABETH CALVILLO Performed By: Brook Stewart Right Sided Venous Evaluation The right common femoral vein is fully compressible. Spontaneous and phasic flow is present in the right common femoral vein. Left Sided Venous Evaluation Normal vessel filling wall to wall, compression and augmentation as well as Colour flow down to the infrageniculate veins. Interpretation Summary No duplex evidence of DVT or obstruction in the left lower extremity nor in the right Common Femoral vein. : ELISABETH CALVILLO [place]
== END ==
LOC: SP 08:17
PROVIDERS: ATTEND Internal Medicine
DX: Z86.718 Personal history of other venous thrombosis and embolism (principal)
CPT/HCPCS: 93971

== ENCOUNTER → 2017-05-15 | Outpatient (CLI) | payer MEDICARE, BC ==
[2017-05-15 10:27] LABS: ABSOLUTE EOSINOPHILS # (AUTO) 0.3 10^3/uL (0.0-0.6); ABSOLUTE LYMPHOCYTES (AUTO) 2.6 10^3/uL (0.5-4.7); ABSOLUTE MONOCYTES (AUTO) 0.8 10^3/uL (0.1-1.4); ABSOLUTE NEUT (AUTO) 3.6 10^3/uL (1.7-8.2); BASOPHILS % (AUTO) 0.6 % (0-2); EOSINOPHILS % (AUTO) 3.6 % (0-6); HEMATOCRIT 37.7 % (36.0-47.0); HEMOGLOBIN 12.6 g/dL (12.0-15.5); HGB HCT DIFFERENCE 0.1; LYMPHOCYTES % (AUTO) 35.6 % (13-45); MEAN CORPUSCULAR HEMOGLOBIN 27.2 pg (27.0-33.4); MEAN CORPUSCULAR HGB CONC 33.5 g/dL (32.0-36.0); MEAN CORPUSCULAR VOLUME 81 fl (80-97); MONOCYTES % (AUTO) 10.9 % (3-13); RED BLOOD COUNT 4.64 10^6/uL (3.72-5.28); RED CELL DISTRIBUTION WIDTH 15.4 % (11.5-14.0); SEGMENTED NEUTROPHILS % (AUTO) 49.3 % (42-78); WHITE BLOOD COUNT 7.3 10^3/uL (4.0-10.5)
[2017-05-15 10:53] LABS: ALANINE AMINOTRANSFERASE 38 U/L (9-52); ALBUMIN 4.4 g/dL (3.5-5.0); ALKALINE PHOSPHATASE 67 U/L (38-126); ANION GAP 14 (5-19); ASPARTATE AMINO TRANSFERASE 32 U/L (14-36); BILIRUBIN,DIRECT 0.4 mg/dL (0.0-0.4); BILIRUBIN,TOTAL 0.6 mg/dL (0.2-1.3); BLOOD UREA NITROGEN 21 mg/dL (7-20); CARBON DIOXIDE 28 mmol/L (22-30); CHLORIDE 103 mmol/L (98-107); CHOLESTEROL 204.62 mg/dL (0-200); CREATININE RESULT 0.99 mg/dL (0.52-1.25); Direct HDL 40 mg/dL (>40); GLUCOSE 80 mg/dL (75-110); POTASSIUM 4.5 mmol/L (3.6-5.0); SODIUM 144.8 mmol/L (137-145); TOTAL PROTEIN 7.9 g/dL (6.3-8.2); TRIGLYCERIDES 211 mg/dL (<150)
[2017-05-15 11:04] LABS: DIRECT LDL 108 mg/dL (<100)
[2017-05-15 11:07] LABS: VLDL CHOLESTEROL 42.2 mg/dL (10-31)
== END ==
LOC: OD 09:00
PROVIDERS: ATTEND Internal Medicine
DX: E11.9 Type 2 diabetes mellitus without complications (principal); I10 Essential (primary) hypertension; E78.5 Hyperlipidemia, unspecified; R53.83 Other fatigue
CPT/HCPCS: 36415; 80053; 80061; 83036; 84443; 85025

== ENCOUNTER → 2019-03-19 | Outpatient (CLI) | payer MEDICARE, BC ==
[2019-03-19 10:26] LABS: ABSOLUTE EOSINOPHILS # (AUTO) 0.3 10^3/uL (0.0-0.6); ABSOLUTE MONOCYTES (AUTO) 0.7 10^3/uL (0.1-1.4); ABSOLUTE NEUT (AUTO) 3.2 10^3/uL (1.7-8.2); BASOPHILS % (AUTO) 0.4 % (0-2); EOSINOPHILS % (AUTO) 5.4 % (0-6); HEMATOCRIT 35.6 % (36.0-47.0); HEMOGLOBIN 11.6 g/dL (12.0-15.5); LYMPHOCYTES % (AUTO) 32.1 % (13-45); MEAN CORPUSCULAR HEMOGLOBIN 26.4 pg (27.0-33.4); MEAN CORPUSCULAR HGB CONC 32.6 g/dL (32.0-36.0); MEAN CORPUSCULAR VOLUME 81 fl (80-97); PLATELET COUNT 227 10^3/uL (150-450); RED CELL DISTRIBUTION WIDTH 16.2 % (11.5-14.0); SEGMENTED NEUTROPHILS % (AUTO) 51.1 % (42-78); TOTAL CELLS COUNTED % (AUTO) 100 %; WHITE BLOOD COUNT 6.4 10^3/uL (4.0-10.5)
[2019-03-19 10:36] LABS: ALBUMIN 4.4 g/dL (3.5-5.0); ALKALINE PHOSPHATASE 76 U/L (38-126); ANION GAP 11 (5-19); ASPARTATE AMINO TRANSFERASE 26 U/L (14-36); BILIRUBIN,DIRECT 0.3 mg/dL (0.0-0.4); BILIRUBIN,TOTAL 0.4 mg/dL (0.2-1.3); BLOOD UREA NITROGEN 37 mg/dL (7-20); CALCIUM 9.7 mg/dL (8.4-10.2); CARBON DIOXIDE 22 mmol/L (22-30); CHLORIDE 107 mmol/L (98-107); CHOLESTEROL 195.84 mg/dL (0-200); GLUCOSE 73 mg/dL (75-110); POTASSIUM 5.4 mmol/L (3.6-5.0); TRIGLYCERIDES 227 mg/dL (<150)
[2019-03-19 10:47] LABS: DIRECT LDL 104 mg/dL (<100)
[2019-03-19 10:50] LABS: VLDL CHOLESTEROL 45.4 mg/dL (10-31)
== END ==
LOC: OD 09:06
PROVIDERS: ATTEND Internal Medicine
DX: E11.9 Type 2 diabetes mellitus without complications (principal); I10 Essential (primary) hypertension; E78.5 Hyperlipidemia, unspecified; R53.82 Chronic fatigue, unspecified
CPT/HCPCS: 36415; 80053; 80061; 83036; 84443; 85025

== ENCOUNTER → 2019-04-10 | Outpatient (CLI) | payer MEDICARE, BC ==
[2019-04-10 09:54] LABS: ANION GAP 11 (5-19); BLOOD UREA NITROGEN 23 mg/dL (7-20); CARBON DIOXIDE 26 mmol/L (22-30); CHLORIDE 104 mmol/L (98-107); GLUCOSE 136 mg/dL (75-110); POTASSIUM 4.8 mmol/L (3.6-5.0)
== END ==
LOC: OD 08:32
PROVIDERS: ATTEND Internal Medicine
DX: E11.9 Type 2 diabetes mellitus without complications (principal); N17.9 Acute kidney failure, unspecified
CPT/HCPCS: 36415; 80048

== ENCOUNTER → 2019-08-07 | Outpatient (CLI) | payer MEDICARE, BC ==
--- NOTE | 2019-08-08 11:43 | XCELERA REPORT ---
[address] [place] [facility] [address] Lower Extremity Venous Evaluation Procedure: Color flow and duplex imaging of the veins of the left lower extremity as well as the right Common Femoral vein. Right Sided Venous Evaluation The right common femoral vein is fully compressible. Spontaneous and phasic flow is present in the right common femoral vein. Left Sided Venous Evaluation Normal vessel filling wall to wall, compression and augmentation as well as Colour flow down to the infrageniculate veins. Interpretation Summary No duplex evidence of DVT or obstruction in the left lower extremity nor in the right Common Femoral vein. Name: STEF COOK Sandi Age: 83 yrs Gender: Female : 1935 Patient Status: Outpatient Patient Location: Study Date: 08/07/2019 11:47 AM Reason For Study: LLE SWELLING Ordering Physician: ELISABETH CALVILLO Performed By: Israel Jenkins : ELISABETH CALVILLO > Blanco Carpenter
== END ==
LOC: SP 10:37
PROVIDERS: ATTEND Internal Medicine
DX: I82.402 Acute embolism and thrombosis of unspecified deep veins of left lower extremity (principal)
CPT/HCPCS: 93971

== ENCOUNTER → 2019-11-25 | Outpatient (CLI) | payer MEDICARE, BC ==
[2019-11-25 10:51] LABS: ABSOLUTE BASOPHILS # (AUTO) 0.1 10^3/uL (0.0-0.2); ABSOLUTE EOSINOPHILS # (AUTO) 0.3 10^3/uL (0.0-0.6); ABSOLUTE LYMPHOCYTES (AUTO) 2.3 10^3/uL (0.5-4.7); ABSOLUTE MONOCYTES (AUTO) 0.9 10^3/uL (0.1-1.4); ABSOLUTE NEUT (AUTO) 7.1 10^3/uL (1.7-8.2); BASOPHILS % (AUTO) 0.5 % (0-2); EOSINOPHILS % (AUTO) 3.2 % (0-6); HEMATOCRIT 37.4 % (36.0-47.0); HEMOGLOBIN 12.8 g/dL (12.0-15.5); LYMPHOCYTES % (AUTO) 21.4 % (13-45); MEAN CORPUSCULAR HEMOGLOBIN 27.2 pg (27.0-33.4); MEAN CORPUSCULAR HGB CONC 34.3 g/dL (32.0-36.0); MEAN CORPUSCULAR VOLUME 79 fl (80-97); MONOCYTES % (AUTO) 8.5 % (3-13); PLATELET COUNT 289 10^3/uL (150-450); RED BLOOD COUNT 4.71 10^6/uL (3.72-5.28); SEGMENTED NEUTROPHILS % (AUTO) 66.4 % (42-78); TOTAL CELLS COUNTED % (AUTO) 100 %; WHITE BLOOD COUNT 10.6 10^3/uL (4.0-10.5)
[2019-11-25 11:19] LABS: ALBUMIN 4.1 g/dL (3.5-5.0); ALKALINE PHOSPHATASE 112 U/L (38-126); ANION GAP 13 (5-19); ASPARTATE AMINO TRANSFERASE 34 U/L (14-36); BILIRUBIN,DIRECT 0.1 mg/dL (0.0-0.4); BILIRUBIN,TOTAL 0.9 mg/dL (0.2-1.3); BLOOD UREA NITROGEN 23 mg/dL (7-20); CALCIUM 9.4 mg/dL (8.4-10.2); CARBON DIOXIDE 29 mmol/L (22-30); CHLORIDE 95 mmol/L (98-107); GLUCOSE 209 mg/dL (75-110); POTASSIUM 4.7 mmol/L (3.6-5.0); TOTAL PROTEIN 8.7 g/dL (6.3-8.2)
== END ==
LOC: OD 10:08
PROVIDERS: ATTEND Internal Medicine
DX: I12.9 Hypertensive chronic kidney disease with stage 1 through stage 4 chronic kidney disease, or unspecified chronic kidney disease (principal); N18.2 Chronic kidney disease, stage 2 (mild); R53.83 Other fatigue
CPT/HCPCS: 36415; 80053; 83735; 85025

== ENCOUNTER → 2020-02-11 | Outpatient (CLI) | payer MEDICARE, BC ==
--- NOTE | 2020-02-11 14:33 | RADIOLOGY REPORT (SQ) ---
EXAM DESCRIPTION: VENOUS UNILATERAL LOWER IMAGES COMPLETED DATE/TIME: 02/11/2020 2:23 pm REASON FOR STUDY: LLE I82.409 I82.409 ACUTE EMBOLISM AND THOMBOS UNSP DEEP VN UNSP LOWER E COMPARISON: 08/07/2019 TECHNIQUE: Dynamic and static coughlin scale and color images acquired of the left leg venous system. Se lected spectral images acquired with additional compression and augmentation maneuvers. The contralat eral common femoral vein and saphenofemoral junction were also imaged. Images stored on PACS. LIMITATIONS: None. FINDINGS: COMMON FEMORAL: Normal phasicity, compression and augmentation. No visualized echogenic ma terial on coughlin scale. No defects on color images. FEMORAL: Normal compression and augmentation. No visualized echogenic material on coughlin scale. No defe cts on color images. POPLITEAL: Normal compression, augmentation. No visualized echogenic material on coughlin scale. No defec ts on color images. CALF VESSELS: Normal compression, augmentation. No visualized echogenic material on coughlin scale. No de fects on color images. GSV and SSV: Normal compression, augmentation. No visualized echogenic material on coughlin scale. No def ects on color images. ANY DEEP VENOUS INSUFFICIENCY: Not evaluated. ANY EVIDENCE OF POPLITEAL CYST: No. OTHER: No other significant finding. CONTRALATERAL COMMON FEMORAL VEIN: Normal phasicity, compression and augmentation. No visualized echogenic material on coughlin scale. No de fects on color images. IMPRESSION: 1. NO EVIDENCE OF DVT OR SVT IN THE LEFT LEG. TECHNICAL DOCUMENTATION: JOB ID: [id number] 2010 [employer]- All Rights Reserved Reading location - IP/workstation name: [email or web address]
== END ==
LOC: SP 11:43
PROVIDERS: ATTEND Internal Medicine
DX: I82.409 Acute embolism and thrombosis of unspecified deep veins of unspecified lower extremity (principal)
CPT/HCPCS: 93971

== ENCOUNTER → 2020-06-17 | Outpatient (CLI) | payer MEDICARE, BC ==
[2020-06-17 14:26] VITALS: BP 147/67
--- NOTE | 2020-06-17 14:26 | ER [facility] ASSESSMENT REPORT ---
Intake - In the Last 14 days Have you traveled outside [place]?: Yes Have you been in close contact with someone CONFIRMED: Yes Worked in Healthcare?: No - Symptoms Subjective Fever([place] feverish): No Chills: No Muscule Aches: No Runny Nose: No Sore Throat: No Cough (New or worsening chronic cough): No Shortness of breath: No Nausea or Vomiting: Yes Headache: No Abdominal Pain: No Diarrhea(3 or more loose stools in last 24 hours): No - Do you have any of the following Chronic lung disease: Asthma or emphysema or COPD: No Cystic Fibrosis: No Diabetes: No High Blood Pressure: Yes Cardiovascular Disease: No Chronic Kidney Disease: No Chronic Liver Disease: No Chronic blood disorder like Sickle Cell Disease: No Weak immune system due to disease or medication: No Neurologic condition that limits movement: No Developmental delay - Moderate to Severe: No Recent (within past 2 weeks) or current : No Morbid Obesity (>100 pounds over ideal weight): No - Objective Temperature: 98.0 F Pulse Rate: 74 Respiratory Rate: 18 Blood Pressure: 147/67 O2 Sat by Pulse Oximetry: 96 Objective: Given above, testing performed: If Testing Performed: Test Specimen Type Sent to General - General Information source: Patient Notes: Patient presents to the [facility] for screening for the coronavirus. Patient reports recent exposure to someone who did test positive. Patient has had nausea for the past week. - Related Data Allergies/Adverse Reactions: No Known Allergies Allergy (Verified 08/13/16 00:46) Past Medical History - General Information source: Patient - Social History Smoking Status: Never Smoker Family History: Reviewed & Not Pertinent - Past Medical History Cardiac Medical History: Reports: Hx Hypertension Pulmonary Medical History: Reports: Hx Asthma Denies: Hx Tuberculosis Endocrine Medical History: Reports: Hx Diabetes Mellitus Type 2 Malignancy Medical History: Reports: Hx Skin Cancer Musculoskeletal Medical History: Reports Hx Arthritis, Reports Hx Musculoskeletal Deformity, Reports Hx Musculoskeletal Trauma Past Surgical History: Reports: Hx Cholecystectomy, Hx Hysterectomy. Denies: Hx Pacemaker Physical Exam - Notes Notes: The patient was evaluated during the global Covid 19 pandemic, and that diagnosis was suspected/considered upon their initial presentation. Their evaluation, treatment and testing was consistent with current guidelines for patients who present with complaints or symptoms that may be related to Covid 19. Full physical exam could not be performed due to covid 19 isolation protocols. Constitutional: Nontoxic appearance, no acute distress Eyes: Nonicteric, extraocular movements intact, sclera clear Cardiovascular: Heart rate and rhythm regular, no JVD Respiratory: Breath sounds clear bilaterally, nonlabored breathing, no use of accessory muscles, no tachypnea Gastrointestinal: Abdomen not distended Muculoskeletal: Moves all extremities well Skin: Normal color Neuro: Awake alert oriented, normal speech Psych: Normal mood and affect Diagnostic Results Laboratory Results: Patient presents with symptoms worrisome for possible Covid 19. Patient does not have emergency worrying symptoms such as difficulty breathing, shortness of breath, chest pain, pressure, confusion or cyanosis. Patient appears suitable for discharge as vital signs are stable and patient is nontoxic in appearance. Good return precautions have been discussed with patient, patient verbalized understanding and is agreeable with discharge plan of care at this time. Patient Education/Counseling Counseling/Education: Patient was provided with discharge information including: As a person under investigation for Covid 19, the [facility], division of public health advises you to adhere to the following guidance until your test results are reported to you. If your test result is positive, you will receive additional information from your provider and your local health department at that time. Remain at home until you are cleared by the health provider or public health authorities. Keep a log of visitors to your home, notify any visitors to your home of your isolation status. If you plan to move to a new address or leave the county, notify the local health department in your County. Call your doctor or seek care if you have an urgent medical need. Before seeking medical care, call ahead to get instructions from the provider before arriving at the medical office clinic or hospital. Notify them that you are being tested for the virus that causes Covid 19 so that arrangements can be made, as necessary, to prevent transmission to others in the healthcare setting. Next, notify the local health department in your county. If a medical emergency arises and you need to call 911, inform the first responders that you are being tested for the virus that causes Covid 19. Next, notify the local health department in your county. [facility] Discharge - Discharge Clinical Impression: Encounter for screening laboratory testing for COVID-19 virus Condition: Stable Disposition: Home; Selfcare
[2020-06-17 16:00] LABS: A TYPE INFLUENZA AG NEGATIVE (NEGATIVE); B INFLUENZA AG NEGATIVE (NEGATIVE)
== END ==
LOC: RDC 13:49
PROVIDERS: ATTEND Nurse Practitioner Family
DX: U07.1 COVID-19 (principal); R11.0 Nausea; I10 Essential (primary) hypertension; E11.9 Type 2 diabetes mellitus without complications; Z85.828 Personal history of other malignant neoplasm of skin
CPT/HCPCS: 87804; 99201; U0003; G0463; C9803; 87635; 99211